=== PATIENT | female | born 1955 | race African-American/Black ===

== ENCOUNTER 2020-01-11 02:44 | Inpatient (IN) | payer OTHER, MEDICAID ==
[2020-01-11] VITALS (9 sets, daily range): BP systolic 108–133; BP diastolic 55–114
[~2020-01-11] VITALS: Ht 170.2 cm; Wt 80.7 kg
[2020-01-11] MEDS ORDERED: NITROGLYCERIN OINT 1GM/INCH UDPKT TD ONE (03:00)
[2020-01-11] MEDS ORDERED: FUROSEMIDE 40MG/4ML VIAL IVP ONE (03:00)
[2020-01-11 03:19] LABS: BASOPHILS % 1.1 % (0.0-2.0); EOSINOPHILS % 1.5 % (0.0-5.0); HEMATOCRIT. 36.1 % (36.0-48.0); HEMOGLOBIN. 11.8 g/dL (12.0-16.0); MEAN CORPUSCULAR HEMOGLOBIN 33.2 pg (28.0-32.0); MEAN CORPUSCULAR VOLUME 101.9 fL (81.0-99.0); MEAN PLATELET VOLUME 9.8 fl (7.4-10.4); MONOCYTES % 7.6 % (2.0-8.0); NEUTROPHILS % 50.8 % (40.0-76.0); PLATELET 246 x1000/uL (130-400); RED BLOOD CELL COUNT 3.54 mill/uL (4.2-5.4); RED CELL DISTRIBUTION WIDTH 13.7 % (11.6-14.6)
[2020-01-11 03:22] LABS: CHLORIDE 109 mEq/L (98-107)
[2020-01-11 03:26] LABS: PROTHROMBIN TIME 11.1 sec (9.6-11.0)
[2020-01-11] MEDS ORDERED: ACETAMINOPHEN 325MG TABLET PO ONE (05:15)
[2020-01-11] MEDS ORDERED: GUAIFENESIN 200MG/10ML SUGAR FREE UDC PO PRN (09:45)
[2020-01-11] MEDS ORDERED: ONDANSETRON HCL 4MG/2ML INJ IV PRN (09:45)
[2020-01-11] MEDS ORDERED: ACETAMINOPHEN 325MG TABLET PO PRN (09:45)
[2020-01-11] MEDS ORDERED: HYDROCODONE/ACETAMINOPHEN 5/325MG TABLET PO PRN (09:45)
[2020-01-11] MEDS ORDERED: LORAZEPAM 0.5MG TABLET PO PRN (09:45)
[2020-01-11] MEDS ORDERED: CLONIDINE 0.1MG TABLET PO PRN (09:45)
[2020-01-11] MEDS ORDERED: IPRATROPIUM/ALBUTEROL 0.5-3(2.5)MG/3ML NEB HHN PRN (09:45)
[2020-01-11] MEDS ORDERED: DEXTROSE 50% WATER 50ML SYRINGE IV PRN (10:15)
[2020-01-11] MEDS: INSULIN LISPRO 100 UNITS/ML SUBCUT SCH ×3 (12:20→20:30)
[2020-01-11] MEDS: BLOOD SUGAR DIAGNOSTIC STRIP TEST SCH ×3 (12:45→20:04)
[2020-01-11] MEDS: FUROSEMIDE 40MG/4ML VIAL IVP SCH (14:10)
[2020-01-11] MEDS: NICOTINE 14MG PATCH TD SCH (14:10)
[2020-01-11] MEDS: ENOXAPARIN 40MG/0.4ML SYR SUBCUT SCH (14:10)
[2020-01-11 14:35] LABS: *AMPHETAMINES SCREEN URINE NEGATIVE (NEGATIVE); *BARBITURATES SCREEN URINE NEGATIVE (NEGATIVE); *BENZODIAZEPINES SCREEN URINE NEGATIVE (NEGATIVE); *COCAINE SCREEN URINE NEGATIVE (NEGATIVE); METHADONE URINE SCREEN NEGATIVE (NEGATIVE); OPIATES URINE SCREEN NEGATIVE (NEGATIVE)
[2020-01-11 14:36] LABS: CANNABINOID URINE SCREEN PRESUMTIVE POSITIVE (NEGATIVE); PHENCYCLIDINE URINE SCREEN NEGATIVE (NEGATIVE)
[2020-01-11] MEDS ORDERED: FUROSEMIDE 40MG/4ML VIAL IVP SCH (18:00)
[2020-01-11] MEDS ORDERED: METF-815 PO (20:33)
[2020-01-11] MEDS ORDERED: SIMV-43 PO (20:33)
[2020-01-11] MEDS ORDERED: LOSA50TA41 PO (20:33)
[2020-01-11] MEDS ORDERED: CARV6.2548 PO (20:33)
[2020-01-11] MEDS ORDERED: GLIP5TAB12 PO (20:33)
[2020-01-11] MEDS ORDERED: ASPI-1497 PO (20:35)
[2020-01-11] MEDS ORDERED: FURO40TA5 PO (20:35)
[2020-01-11] MEDS: CARVEDILOL 3.125 MG TABLET PO SCH (20:40)
[2020-01-12] VITALS (14 sets, daily range): BP systolic 118–154; BP diastolic 64–98
[2020-01-12] MEDS: BLOOD SUGAR DIAGNOSTIC STRIP TEST SCH ×4 (06:41→20:55)
[2020-01-12] MEDS: INSULIN LISPRO 100 UNITS/ML SUBCUT SCH ×4 (06:41→21:13)
[2020-01-12 07:56] LABS: BASOPHILS % 1.2 % (0.0-2.0); EOSINOPHILS % 2.4 % (0.0-5.0); HEMATOCRIT. 32.2 % (36.0-48.0); MEAN CORPUSCULAR HEMOGLOBIN 33.5 pg (28.0-32.0); MEAN CORPUSCULAR VOLUME 98.7 fL (81.0-99.0); MONOCYTES % 6.5 % (2.0-8.0); NEUTROPHILS % 59.9 % (40.0-76.0); PLATELET 216 x1000/uL (130-400); RED BLOOD CELL COUNT 3.27 mill/uL (4.2-5.4); RED CELL DISTRIBUTION WIDTH 13.5 % (11.6-14.6)
[2020-01-12 08:15] LABS: CHLORIDE 107 mEq/L (98-107)
[2020-01-12 08:21] LABS: PHOSPHORUS 3.4 mg/dL (2.5-4.9)
[2020-01-12 08:31] LABS: FOLIC ACID (FOLATE) SERUM 10.7 ng/mL (>5.38)
[2020-01-12] MEDS: CARVEDILOL 3.125 MG TABLET PO SCH ×2 (08:39→21:14)
[2020-01-12] MEDS: NICOTINE 14MG PATCH TD SCH ×2 (08:46→17:20)
[2020-01-12] MEDS: ENOXAPARIN 40MG/0.4ML SYR SUBCUT SCH (09:38)
[2020-01-12] MEDS: FUROSEMIDE 40MG/4ML VIAL IVP SCH (09:58)
[2020-01-12] MEDS ORDERED: POTASSIUM CHLORIDE 20MEQ TABLET SR PO ONE (10:45)
[2020-01-12] MEDS ORDERED: POTASSIUM CHLORIDE 20MEQ TABLET SR PO NR (10:45)
[2020-01-12] MEDS: IPRATROPIUM/ALBUTEROL 0.5-3(2.5)MG/3ML NEB HHN SCH ×2 (14:07→21:43)
[2020-01-12] MEDS: DOCUSATE SODIUM 100MG CAPSULE PO PRN (19:32)
[2020-01-13] VITALS (7 sets, daily range): BP systolic 106–126; BP diastolic 52–85
[2020-01-13] MEDS: IPRATROPIUM/ALBUTEROL 0.5-3(2.5)MG/3ML NEB HHN SCH ×3 (02:05→12:49)
[2020-01-13] MEDS: BLOOD SUGAR DIAGNOSTIC STRIP TEST SCH ×2 (06:22→11:53)
[2020-01-13] MEDS: INSULIN LISPRO 100 UNITS/ML SUBCUT SCH ×2 (06:35→12:54)
[2020-01-13 07:05] LABS: BASOPHILS % 0.7 % (0.0-2.0); EOSINOPHILS % 2.7 % (0.0-5.0); HEMOGLOBIN. 11.6 g/dL (12.0-16.0); MEAN CORPUSCULAR HEMOGLOBIN 33.8 pg (28.0-32.0); MEAN CORPUSCULAR VOLUME 99.2 fL (81.0-99.0); MEAN PLATELET VOLUME 9.9 fl (7.4-10.4); MONOCYTES % 10.4 % (2.0-8.0); NEUTROPHILS % 58.2 % (40.0-76.0); PLATELET 227 x1000/uL (130-400); RED BLOOD CELL COUNT 3.43 mill/uL (4.2-5.4); RED CELL DISTRIBUTION WIDTH 13.3 % (11.6-14.6)
[2020-01-13 07:39] LABS: CHLORIDE 105 mEq/L (98-107)
[2020-01-13] MEDS: FUROSEMIDE 40MG/4ML VIAL IVP SCH (09:58)
[2020-01-13] MEDS: CARVEDILOL 3.125 MG TABLET PO SCH (09:59)
[2020-01-13] MEDS: DOCUSATE SODIUM 100MG CAPSULE PO PRN (09:59)
[2020-01-13] MEDS: ENOXAPARIN 40MG/0.4ML SYR SUBCUT SCH (10:01)
[2020-01-13] MEDS ORDERED: CARV6.2548 PO (15:11)
[2020-01-13] MEDS ORDERED: FURO40TA5 PO (15:11)
[2020-01-13] MEDS ORDERED: ASPI-1497 PO (15:11)
[2020-01-13] MEDS ORDERED: FURO40TA5 MT (15:13)
[2020-01-13] MEDS ORDERED: ASPI-1497 MT (15:13)
[2020-01-13] MEDS ORDERED: CARVEDILOL 6.25 MG TABLET PO SCH (21:00)
[2020-01-14] MEDS ORDERED: FUROSEMIDE 20MG TABLET PO SCH (09:00)
== END 2020-01-13 17:02 | disposition home or self-care (01) | DRG 291 ==
LOC: ER 02:44 → 3WST 03:58 → EDBEDREQ 04:04 → EDBEDREQTM 04:04 → EDBEDREQSVC 04:04 → ENRESERV 04:41
PROVIDERS: ADMIT Internal Medicine; ATTEND Internal Medicine
PROC: 5A09357 Assistance with Respiratory Ventilation, Less than 24 Consecutive Hours, Continuous Positive Airway Pressure (ICD-10-PCS; principal; 2020-01-11)
DX: I11.0 Hypertensive heart disease with heart failure (principal); J96.00 Acute respiratory failure, unspecified whether with hypoxia or hypercapnia; J44.1 Chronic obstructive pulmonary disease with (acute) exacerbation; I95.9 Hypotension, unspecified; E87.6 Hypokalemia; E11.65 Type 2 diabetes mellitus with hyperglycemia; G89.29 Other chronic pain; M54.5 Low back pain; D53.9 Nutritional anemia, unspecified; F17.200 Nicotine dependence, unspecified, uncomplicated; I50.43 Acute on chronic combined systolic (congestive) and diastolic (congestive) heart failure; N83.209 Unspecified ovarian cyst, unspecified side; F17.210 Nicotine dependence, cigarettes, uncomplicated; R74.0 Nonspecific elevation of levels of transaminase and lactic acid dehydrogenase [LDH]; Z79.899 Other long term (current) drug therapy; Z79.82 Long term (current) use of aspirin; Z79.84 Long term (current) use of oral hypoglycemic drugs; Z91.14 Patient's other noncompliance with medication regimen
CPT/HCPCS: 36415; 71045; 80048; 80053; 80061; 80305; 82607; 82746; 82962; 83036; 83735; 83880; 84100; 84484; 85025; 93005; 93306; 94640; 99291; J1650; J1815; J1940